=== PATIENT | male | born 1940 | race Caucasian/White ===

== ENCOUNTER 2023-10-21 11:07 | Emergency (ER) | payer MEDICARE, SELFPAY ==
[2023-10-21 11:08] VITALS: BP 176/100; PULSE 80; RESP 18; TEMP 35.7; O2SAT 99; BMI 23.4
[2023-10-21 11:41] LABS: Absolute Lymphocyte Count 0.84 X10^3/uL (0.83-4.51); Absolute Neutrophil Count 7.7 X10^3/uL (2.0-7.7); Basophil# 0.03 X10^3/uL; Basophil% 0.3 % (0-1); Eosinophil# 0.03 X10^3/uL; Eosinophils% 0.3 % (0-5); Hematocrit 39.8 % (40-54); Hemoglobin 13.7 g/dL (13.0-16.5); Lymphocyte # 0.84 X10^3/ul (0.83-4.51); Lymphocyte % 9.2 % (19-41); Mean Corp Hgb Conc 34.4 g/dL (32-36); Mean Corpuscular Hgb 32.9 pg (27.0-32.0); Mean Corpuscular Volume 95.7 fL (80-94); Mean Platelet Vol. 10.2 fl (6.2-12.0); Monocyte# 0.52 X10^3/uL; Monocyte% 5.7 % (0-10); NRBC Flagged by Analyzer 0 % (0-5); Neutrophil # 7.67 X10^3/uL (2.7-7.7); Neutrophil % 83.7 % (47-70); Platelet Count 215 K/mm3 (150-450); RBC Distribution Width CV 12.6 % (11.6-14.6); RBC Distribution Width SD 44.6 fl (35.1-43.9); Red Blood Count 4.16 M/mm3 (4.6-6.2); White Blood Count 9.2 K/mm3 (4.4-11.0)
[2023-10-21 11:57] LABS: Anion Gap 3 (5-15); BUN 24 mg/dL (7-18); BUN/Creat Ratio 24.9 RATIO (10-20); Calcium,Total 9.1 mg/dL (8.5-10.1); Chloride 109 mmol/L (98-107); Creatinine, Serum 0.96 mg/dL (0.70-1.30); EST Glomerular Filtration Rate 79 mL/min (>60); Est Glom Filt Rate - Afr Amer 96 mL/min (>60); Estimated Creatinine Clearance 60.35 ml/min; Glucose 117 mg/dL (74-106); Potassium 3.5 mmol/L (3.5-5.1); Sodium Level 141 mmol/L (136-145)
[2023-10-21 12:08] LABS: Alcohol, Blood (Medical)-Serum < 3.0 mg/dL
--- NOTE | 2023-10-21 12:29 | CT_ITS ---
STUDY: CT BRAIN WITHOUT CONTRAST REASON FOR EXAM: Male, 83 years old. Hallucinations RADIATION DOSAGE (If Supplied By Facility): CTDIvol = ( 44.99 ) mGy, DLP = ( 812.98 ) mGycm TECHNIQUE: Transaxial CT imaging of the brain was performed without administration of intravenous contrast material. Individualized dose optimization techniques were used for this CT. COMPARISON: No relevant priors. FINDINGS: Normal soft tissue structures. Normal calvarium. There is mild cerebral atrophy with widening of the extra-axial spaces and ventricular dilatation. Normal white matter tracts of the cerebral hemispheres. Normal basal ganglia and thalami. Normal brainstem. Normal cerebellum. There is no intracranial hemorrhage. There are no findings of an acute ischemic infarction. Atherosclerotic plaque formation of the cavernous portions of the internal carotid artery bilaterally. Normal visualized paranasal sinuses. CT/Brain/Head without Contrast IMPRESSION: Chronic involutional changes of the brain. Electronically Signed: Victor Hugo Dang MD at 13:19 EST ,
--- NOTE | 2023-10-21 12:30 | EX.ED.VIS.PS ---
HPI HPI - Psych History of Present Illness Chief Complaint: Mental Health Detail of Chief Complaint: Hallucinations Informant: patient Narrative Narrative: Patient presents to the emergency department complaint of hallucinations that has been going on for about a month and a half. Patient was seen twice apparently from what he tells me at [facility] for same. Today he was seeing a psychiatrist for the first time who referred him to the ER for evaluation for possible medical causes. Patient tells me that he sees people that are not really there and maybe once a month. He knows they are not real because they do not talk to him. Patient denies recent illness. Denies headache. Denies falls or head injuries. He denies feeling suicidal or homicidal. [facility] Medical History (Updated 10/21/23 @ 14:[address] Justina Calabrese DO) Altered mental status Cancer Visual hallucinations Home Medications cholecalciferol (vitamin D3) 25 mcg (1,000 unit) capsule 25 mcg PO DAILY 10/21/23 [History Last Taken Unknown] metoprolol tartrate 25 mg tablet mg PO 10/21/23 [History Last Taken Unknown] simvastatin 20 mg tablet mg PO 10/21/23 [History Last Taken Unknown] triamterene 37.5 mg-hydrochlorothiazide 25 mg capsule cap PO 10/21/23 [History Last Taken Unknown] Allergy/AdvReac Type Severity Reaction Status Date / Time No Known Allergies Allergy Verified 10/21/23 09:23 Family History Other Arthritis Cancer Social History (Updated 10/21/23 @ 09:26 by Melissa Liang) Smoking Status: Former smoker alcohol intake: current details: occasional wine substance use type: does not use ROS ROS ED Review of Systems ROS Unobtainable: other Constitutional Constitutional ED: Reports lethargy; Denies chills, fever(s), sweats or weight loss Eyes Eyes: Denies blurry vision, change in vision or diplopia ENT ENT ED: Denies rhinorrhea or sore throat Cardiovascular Cardiovascular: Denies chest pain, orthopnea or racing heartbeat Respiratory/Chest Respiratory/Chest: Denies cough, dyspnea, dyspnea on exertion, orthopnea or sputum Gastrointestinal Gastrointestinal: Denies abdominal pain, diarrhea, nausea or vomiting Genitourinary Genitourinary ED: Denies dysuria, hematuria or urinary frequency Musculoskeletal Musculoskeletal: Denies arthralgias, back pain, myalgias or neck pain Integumentary Denies abscess, Abrasions or rash Neurologic Neurologic: Denies headache(s) or weakness Psychiatric Psychiatric: Reports other Details: Visual hallucinations ; Denies anxiety, depression or suicidal thoughts Endocrine Endocrinology: Denies polydipsia, polyphagia or polyuria Hematologic/Lymphatic Hematologic/Lymphatic: Denies easy bleeding, easy bruising or lymphadenopathy Allergic/Immunologic Allergic/Immunologic ED: Denies mouth swelling, tongue swelling or urticaria EXAM Physical Exam Const Vital Signs: 10/21/23 11:08 Temperature 96.3 F L Temperature Source Temporal Pulse Rate 80 Respiratory Rate 18 Blood Pressure 176/100 H Blood Pressure Mean 125 Pulse Ox 99 Oxygen Delivery Method Room Air Positive well nourished and well developed General Appearance ED: well developed and NAD HEENT Reports TM's clear and moist mucous membranes normocephalic and atraumatic; Negative for trauma or tenderness Tympanic Membrane ED: Yes TM's clear Eyes PERRL and EOMs intact bilaterally General Eye ED: Negative for pale conjunctiva or scleral icterus Neck no lymphadenopathy, supple and no JVD General: Negative for tenderness Chest Wall inspection of chest normal and palpation of chest normal Chest: Negative for tenderness Resp normal respiratory effort and clear to auscultation bilaterally Effort and Inspection: Negative for respiratory distress or pain with movement Auscultation: Negative for rhonchi, wheezes or diminished lung sounds Cardio regular rate, regular rhythm, S1 normal heart sound, S2 normal heart sound and no murmurs Peripheral Pulses: pulses 2+ throughout GI normal to inspection, nondistended, normoactive bowel sounds, soft to palpation, non-tender, non-distended and no masses Back/Spine no CVA tenderness and no thoracic nor lumbar tenderness Extremity normal to inspection General Extremety ED: Negative for edema General Extremity: Negative for edema Neuro oriented x3, CN's II-XII intact bilaterally, no sensory deficits noted and gait normal Sensorium / Orientation: awake, alert, oriented to person, oriented to place and oriented to time Motor Exam: strength 5/5 throughout and strength abnormal Psych mental status grossly normal Skin no rashes or lesions noted and no wounds MDM MDM MDM Narrative Medical decision making narrative: Patient presents with hallucinations for about a month and a half unknown etiology. Seen by his psychiatrist today and referred to the ER to rule out organic causes. Patient had an IV line established. CBC with differential obtained showed a normal white count of 9.2 with hemoglobin 13.7 and platelet count of 215. Chemistries unremarkable. LFTs were normal. Urinalysis was normal. Talk screen negative alcohol negative. CT scan of the brain without contrast was unremarkable. This point etiology of his hallucinations unclear. They are not frequent. Patient states that his psychiatrist may start him on some medication to help treat these hallucinations once his medical workup is completed. At this point clinically he looks well. He has no concern about going home and caring for himself. He will be discharged to home and advised to follow-up with a psychiatrist. Lab Data Attestation: I reviewed the patient's lab results. Labs: Laboratory Results - last 24 hr 10/21/23 10/21/23 11:25 13:20 WBC 9.2 RBC 4.16 L Hgb 13.7 Hct 39.8 L MCV 95.7 H MCH 32.9 H MCHC 34.4 RDW Std Deviation 44.6 H RDW Coeff of Janeth 12.6 Plt Count 215 MPV 10.2 Immature Gran % (Auto) 0.800 Neut % (Auto) 83.7 H Lymph % (Auto) 9.2 L [place] % (Auto) 5.7 Eos % (Auto) 0.3 Baso % (Auto) 0.3 Absolute Neuts (auto) 7.7 Absolute Lymphs (auto) 0.84 Nucleated RBC % 0 Sodium 141 Potassium 3.5 Chloride 109 H Carbon Dioxide 29.0 Anion Gap 3 L BUN 24 H Creatinine 0.96 Estim Creat Clear Calc 60.35 Est GFR (MDRD) Af Amer 96 Est GFR (MDRD) Non-Af 79 BUN/Creatinine Ratio 24.9 H Glucose 117 H Calcium 9.1 Total Bilirubin 1.00 Direct Bilirubin 0.27 AST 28 ALT 30 Alkaline Phosphatase 69 Total Protein 7.1 Albumin 3.8 Globulin 3.3 Urine Color Yellow Urine Clarity Clear Urine pH 7.0 Ur Specific [place] 1.005 Urine Protein Negative Urine Glucose (UA) Normal Urine Ketones Negative Urine Occult Blood 10 H Urine Nitrite Negative Urine Bilirubin Negative Urine Urobilinogen Normal Ur Leukocyte Esterase Negative Urine RBC 0 SEEN Urine WBC 0 SEEN Ur Squamous Epith Cells 0-5 SEEN Urine Bacteria 0 SEEN Urine Mucus 0 SEEN Urine Opiates Screen NEGATIVE Urine Methadone Screen NEGATIVE Ur Barbiturates Screen NEGATIVE Ur Phencyclidine Scrn NEGATIVE Ur Amphetamines Screen NEGATIVE MDMA (Ecstasy) Screen NEGATIVE U Benzodiazepines Scrn NEGATIVE Urine Cocaine Screen NEGATIVE U Cannabinoids Screen NEGATIVE Ur Drug Screen Comment Ethyl Alcohol < 3.0 Radiography Diagnostic Testing: Clinical Impression(s) from Imaging Studies Brain CT 10/21/23 12:29 IMPRESSION: Chronic involutional changes of the brain. Electronically Signed: Victor Hugo Dang MD at 13:19 EST , Discharge Plan Triage Chief Complaint: Mental Health ED Provider: Justina Calabrese Dx/Rx/DC Orders Clinical Impression: Visual hallucinations Instructions: ED Psychosis Prescriptions: No Action triamterene-hydrochlorothiazid 37.5-25 mg capsule PO simvastatin 20 mg tablet PO metoprolol tartrate 25 mg tablet PO cholecalciferol (vitamin D3) 25 mcg (1,000 unit) capsule 25 mcg PO DAILY Primary Care Provider: Kade Villafuerte Referrals: Kade Villafuerte DO [Primary Care Provider] - Activity Restrictions/Additional Instructions: Follow-up with your psychiatrist for possible treatment for your hallucinations. Disposition Disposition: Home, Self Care Discharge Date/Time: 10/21/23 14:58
[2023-10-21 13:09] LABS: AST(SGOT) 28 U/L (15-37); Alanine Aminotransfer ALT/SGPT 30 U/L (16-61); Albumin, Serum 3.8 g/dL (3.2-5.0); Alkaline Phosphatase 69 U/L (45-117); Bilirubin, Direct 0.27 mg/dL (0.00-0.30); Globulin 3.3 g/dL (2.2-4.2); Protein, Total 7.1 g/dL (6.4-8.2)
--- OUTSIDE RECORDS SUMMARY | 2023-10-21 13:31 | XMS RPT_ITS | CCD ---
Author Name Unknown Address [address] [facility] [address] [place] [address] Organization [facility] Care Team Providers Care Power Distribution Engineer Name Role Phone YENI TERRY, DR BAMBI Brooks Primary Care Physician CECI SANTO, DR JENNIFER Saavedra Attending Unavai lable YENI TERRY, DR BAMBI Brooks Primary Care Unavaillong MTZ MD, DANNIELLE Reyes Attending Kia YENI DO, DR BAMBI Brooks Primary Care Unavailabl e YENI , DR BAMBI Brooks Primary Care Unavailabl e YENI , DR BAMBI Brooks Attending Unavailabl e Allergies Allergy Classification Reported Allergen(s) Allergy Type Date of Onset Reaction(s) Facility (6 sources) Vitamin E; Translations: [vitamin E] [facility] Current Medications Medication Drug Class(es) Dates Sig (Normalized) Sig (Original) azithromycin 250 mg oral tablet (1 source) Macrolide Antimicrobial Start: 09-11-2022 End: 09-16-2022 Zithromax Z-Marty 250 mg oral tablet Take two (2) tablets day 1-then one (1) tablet, Oral, Daily, as directed on package labeling, # 6 tab(s), 0 Refill(s), Cough Upper respiratory infection, 70.5 Start Date: 09/11/22 Stop Date: 09/16/22 Status: Ordered benzonatate 100 mg oral capsule (1 source) Non-narcotic Antitussive Start: 09-11-2022 End: 09-18-2022 Tessalon Perles 100 mg oral capsule Dose : 100 mg = 1 cap(s), Oral, TID, PRN as needed for cough, # 21 cap(s), 0 Refill(s), Cough Upper respiratory infection Start Date: 09/11/22 Stop Date: 09/18/22 Status: Ordered famotidine 20 mg oral tablet (2 sources) Histamine-2 Receptor Antagonist Start: 06-01-2019 famotidine 20 mg oral tablet Dose : 20 mg = 1 tab(s), Oral, qDay, # 30 tab(s), 0 Refill(s) Start Date: 06/01/19 Status: Ordered fluorouracil 50 mg/ml topical cream (1 source) Nucleoside Metabolic Inhibitor Start: 11-26-2022 fluorouracil 5% topical cream Apply 1 watson, Topical, BID, treat for 3 weeks then allow to heal. may repeat if needed., # 40 gram(s), 1 Refill(s), Pharmacy: [facility] #[id number], 175, cm, 11/26/22 14:47:00 EST, Height, 72.9 Start Date: 11/26/22 Status: Ordered hydroCHLOROthiazide 25 mg / triamterene 37.5 mg oral capsule (6 sources) Potassium-sparing Diuretic, Thiazide Diuretic Start: 12-29-2022 take 1 capsule by mouth once daily hydrochlorothiaz rafael-triamterene 25 mg-37.5 mg oral capsule See Instructions, TAKE 1 CAPSULE DAILY, # 90 cap(s), 3 Refill(s), Pharmacy: [facility], 175, cm, 11/26/22 14:47:00 EST, Height, kg, 11/26/22 14:47:00 EST, Dosing Weight Start Date: 12/29/22 Status: Ordered Completed/Discontinued Medications Medication Drug Class(es) Dates Sig (Normalized) Sig (Original) albuterol MDI (90 mcg/inh) CFC free inhalation aerosol (1 source) Start: 09-15-2022 End: 10-15-2022 take 2 puff(s) by inhalation every four hours albuterol MDI (90 mcg/inh) CFC free inhalation aerosol 2 puff(s), Inhalation, q4h, ok to fill generic equivalent rescue inhaler, # 1 EA, 0 Refill(s), Pharmacy: [facility] #[id number], 175, cm, 09/15/22 10:19:00 EST, Height Start Date: 09/15/22 Stop Date: 10/15/22 Status: Ordered Problems Problem Classification Problem Date Documented Date Episodic/Chronic Blindness and vision defects (2 sources) Visual hallucinations; Translations: [Visual hallucinations] Onset: 06-29-2023 Episodic Cancer of prostate (6 sources) History of malignant neoplasm of prostate 12-21-2019 Episodic Disorders of lipid metabolism (6 sources) Mixed hyperlipidemia 12-21-2019 Chronic Esophageal disorders (6 sources) Gastroesophageal reflux disease without esophagitis 12-21-2019 Chronic Essential hypertension (6 sources) Benign hypertension 08-29-2020 Chronic Influenza (3 sources) Influenza due to Influenza A virus 09-15-2022 Episodic Other lower respiratory disease (5 sources) Cough; Translations: [Cough, unspecified] Onset: 09-11-2022 Episodic Other upper respiratory infections (5 sources) Acute upper respiratory infection; Translations: [Acute upper respiratory infection, unspecified] Onset: 09-11-2022 Episodic Results Test Name Value Interpretation Reference Range Facil ity Vital Signs Date Time Vital Sign Value Performing Clinician Faci lity 09-22-2023 22:03-0500 Diastolic Blood Pressure Non-Invasive 73 mm[Hg] DANNIELLE MTZ MD [facility] 09-22-2023 22:03-0500 Heart rate 81 /min DANNIELLE MTZ MD [facility] 09-22-2023 22:03-0500 Reason For Taking VItal Signs DANNIELLE MTZ MD [facility] 09-22-2023 22:03-0500 Respiratory rate 18 /min DANNIELLE MTZ MD [facility] 09-22-2023 22:03-0500 Systolic Blood Pressure Non-Invasive 168 mm[Hg] DANNIELLE MTZ MD [facility] 09-22-2023 18:15-0500 Diastolic Blood Pressure Non-Invasive 88 mm[Hg] DANNIELLE MTZ MD [facility] 09-22-2023 18:15-0500 Heart rate 84 /min DANNIELLE MTZ MD [facility] 09-22-2023 18:15-0500 Respiratory rate 18 /min DANNIELLE MTZ MD [facility] 09-22-2023 18:15-0500 Systolic Blood Pressure Non-Invasive 168 mm[Hg] DANNIELLE MTZ MD [facility] 09-22-2023 16:22-0500 Body temperature 97.52 [degF] DANNIELLE MTZ MD [facility] 09-22-2023 16:22-0500 Diastolic Blood Pressure Non-Invasive 90 mm[Hg] DANNIELLE MTZ MD [facility] 09-22-2023 16:22-0500 Heart rate 87 /min DANNIELLE MTZ MD [facility] 09-22-2023 16:22-0500 Respiratory rate 18 /min DANNIELLE MTZ MD [facility] 09-22-2023 16:22-0500 Systolic Blood Pressure Non-Invasive 172 mm[Hg] DANNIELLE MTZ MD [facility] 06-29-2023 14:15-0400 Diastolic Blood Pressure Non-Invasive 68 1 DANNIELLE MTZ MD [facility] 06-29-2023 14:15-0400 Heart rate 72 /min DANNIELLE MTZ MD [facility] 06-29-2023 14:15-0400 Respiratory rate 16 /min DANNIELLE MTZ MD [facility] 06-29-2023 14:15-0400 Systolic Blood Pressure Non-Invasive 138 1 DANNIELLE MTZ MD [facility] 06-29-2023 11:39-0400 Blood Pressure Location DANNIELLE MTZ MD [facility] 06-29-2023 11:39-0400 Blood Pressure Method DANNIELLE MTZ MD [facility] 06-29-2023 11:39-0400 Body temperature 97.7 [degF] DANNIELLE MTZ MD [facility] 06-29-2023 11:39-0400 Body weight 68.2 kg DANNIELLE MTZ MD [facility] 06-29-2023 11:39-0400 Diastolic Blood Pressure Non-Invasive 65 1 DANNIELLE MTZ MD [facility] 06-29-2023 11:39-0400 Heart rate 75 /min DANNIELLE MTZ MD [facility] 06-29-2023 11:39-0400 Respiratory rate 16 /min DANNIELLE MTZ MD [facility] 06-29-2023 11:39-0400 Systolic Blood Pressure Non-Invasive 138 1 DANNIELLE MTZ MD [facility] 09-11-2022 09:48-0500 Diastolic Blood Pressure Non-Invasive [address] SURJIT GIBBS MD [facility] 09-11-2022 09:48-0500 Heart rate 80 /min DR SURJIT GIBBS MD [facility] 09-11-2022 09:48-0500 Respiratory rate 20 /min DR SURJIT GIBBS MD [facility] 09-11-2022 09:48-0500 Systolic Blood Pressure Non-Invasive [address] SURJIT GIBBS MD [facility] 09-11-2022 07:53-0500 Heart rate 88 /min DR SURJIT GIBBS MD [facility] 09-11-2022 07:53-0500 Respiratory rate 16 /min DR SURJIT GIBBS MD [facility] 09-11-2022 07:40-0500 Body height 177.[address] SURJIT GIBBS MD [facility] 09-11-2022 07:40-0500 Body temperature 98.42 [degF] DR SURJIT GIBBS MD [facility] 09-11-2022 07:40-0500 Body weight 70.[address] SURJIT GIBBS MD [facility] 09-11-2022 07:40-0500 Diastolic Blood Pressure Non-Invasive [address] SURJIT GIBBS MD [facility] 09-11-2022 07:40-0500 Heart rate 102 /min DR SURJIT GIBBS MD [facility] 09-11-2022 07:40-0500 Respiratory rate 20 /min DR SURJIT GIBBS MD [facility] 09-11-2022 07:40-0500 Systolic Blood Pressure Non-Invasive [address] SURJIT GIBBS MD [facility] Encounters Encounter Date Encounter Type Care Provider Facility Start: 09-22-2023 End: 09-23-2023 Emergency department patient visit DR JENNIFER ORNELAS MD Facility:[facility] Start: 09-22-2023 End: 09-22-2023 Emergency department patient visit DANNIELLE MTZ MD [facility] Start: 07-03-2023 End: 07-04-[address] BAMBI JAIME DO Facility:[facility] Start: 07-03-2023 End: 07-03-[address] BAMBI JAIME DO [facility] Start: 06-29-2023 End: 06-29-2023 Emergency department patient visit DANNIELLE MTZ MD Facility:[facility] Start: 06-29-2023 End: 06-29-2023 Emergency department patient visit DANNIELLE MTZ MD [facility] Start: 09-11-2022 End: 09-11-2022 Emergency department patient visit DR SURJIT GIBBS MD [facility] Start: 11-12-2021 End: 11-16-2021 Outreach Lab MARIA ELENA SHAY RECREATION COORDINATOR-BODY WORK AUTO TRIMMER [facility] Start: 08-22-2021 End: 08-26-[address] BAMBI JAIME DO [facility] Procedures Date Procedure Procedure Detail Performing Clinician Start: 07-30-1993 Procedure on prostate D Chad JAIME DO Immunizations Immunization Date Immunization Notes Care Provider Fa cili 08-11-2022 SARS-CoV-2 (CV19)mRNA-1273 bivalent vac DANNIELLE MTZ MD [facility] 08-11-2022 SARS-CoV-2 CV19 mRNA-[address] SURJIT GIBBS MD [facility] 06-05-2022 influenza virus vacc ine, unspecified formulation DR SURJIT GIBBS MD [facility] 02-17-2022 SARS-CoV-2 (COVID-19 ) mRNA-[address] SURJIT GIBBS MD [facility] 08-12-2021 SARS-CoV-2 (COVID-19 ) mRNA-[address] BAMBI JAIME DO [facility] 07-10-2021 influenza virus vacc ine, unspecified formulation DR SURJIT GIBBS MD [facility] 12-05-2020 COVID-19, mRNA, LNP- S, PF, 100 mcg/ 0.5 mL dose; Translations: [Moderna COVID-19 Vaccine] DR BABMI JAIME DO [facility] 11-07-2020 SARS-CoV-2 (COVID-19 ) mRNA-[address] BAMBI JAIME DO [facility] 06-02-2020 influenza virus vacc ine, unspecified formulation DR BAMBI JAIME DO [facility] 07-08-2019 influenza virus vacc ine, unspecified formulation DR BAMBI JAIME DO [facility] 06-01-2019 pneumococcal polysaccharide vaccine, 23 valent; Translations: [Pneumovax 23] DR BAMBI JAIME DO [facility] 07-01-2018 influenza virus vacc ine, unspecified formulation DR BAMBI JAIME DO [facility] 06-12-2018 influenza virus vacc ine, unspecified formulation DR BAMBI JAIME DO [facility] 06-02-2018 pneumococcal conjuga te vaccine, [address] BAMBI JAIME DO [facility] 06-02-2018 tetanus toxoid, redu zafar diphtheria toxoid, and acellular pertussis vaccine, adsorbed DR BAMBI JAIME DO [facility] 06-25-2017 influenza virus vacc ine, unspecified formulation DR BAMBI JAIME DO [facility] 06-13-2016 influenza virus vacc ine, unspecified formulation DR BAMBI JAIME DO [facility] 08-02-2015 influenza virus vacc ine, unspecified formulation DR BAMBI JAIME DO [facility] 12-29-2014 pneumococcal conjuga te vaccine, [address] BAMBI JAIME DO [facility] Payers Date Payer Category Payer Unknown [id number] 1940 Unknown [id number] 1940 Unknown [id number] 1940 Unknown [id number] Social History Date Type Detail Facility Start: 05-30-2019 End: 09-22-2023 Ex-smoker (finding) [facility] Sex Assigned At [facility] Functional Status Date Assessment Result Facility 09-22-2023 Functional Status Standard Safet y ID band on, Call device within reach, Bed in low position, Wheels locked, Bedside Cart Locked, Safety level maintained [facility] 09-22-2023 Functional Status [facility] 06-29-2023 Functional Status Minimum assistance [facility] 06-29-2023 Functional Status ID band on, Call device within reach, Bed in low position, Wheels locked, Upper/Half-Length side-rails up, Visitor at bedside [facility] 09-11-2022 Functional Status Independent [facility] 09-11-2022 Functional Status Resting [facility] Mental Status Date Assessment Result Facility 09-22-2023 Mental Status Orientation Not oriented to time, Forgetful, Follows simple commands [facility] 09-22-2023 Mental Status [facility] 09-22-2023 Mental Status [facility] 06-29-2023 Mental Status Orientation Oriented x 4 [facility] 06-29-2023 Mental Status [facility] 09-11-2022 Mental Status Orientation Oriented x 4 [facility] 09-11-2022 Mental Status [facility] Clinical Notes 11-12-2021 to 09-23-2023 LaboratoryLaboratoryLaboratoryLaboratoryLaboratory Note Date & Type Note Facility 09-23-2023 Hospital Discharge instructions Patient Education 09/22/2023 22:53:30 For Caregivers: Safety Tips for Dementia Patients For Caregivers: Safety Tips for People With Dementia Prevent driving by keeping your loved one s car keys in a secure place. The symptoms of dementia can sometimes lead to unsafe situations. Areas of special concern include driving and wandering away from home. You may also need to make changes in your loved one s living space. These can help protect your loved one even when you aren t around. Discourage driving Driving is often not safe for a person with dementia. It may even be illegal. Ask the healthcare provider if it s safe for your loved one to drive. If safety is in question, use these tips to prevent him or her from getting behind the wheel: Limit access to the car. Keep the keys with you or lock them away. Ask an authority figure, such as a healthcare provider or disability insurance claim examiner, to tell your loved one not to drive. Ask your healthcare provider about contacting the Department of Motor Vehicles. Watch for wandering People with dementia may wander away from the house and get lost. To keep your loved one safer, try these tips: Have your loved one wear an ID bracelet at all times. You can also enroll your loved one in the Alzheimer s Association s Safe Return program. Install door chimes so you know when outside doors are being opened. Ask neighbors to call you if they see your loved one out alone. Go with your loved one if he or she insists on leaving the house. Don t argue or yell. Instead, use distraction or gentle hints to get him or her to return home. People with dementia often have a reversed sleep-wake cycle, meaning that they can be up all night and wander away when you least expect it. Make living spaces safe Keep your loved one safe by simplifying his or her living space. This means reducing clutter and removing hazards. You may also want to get advice from an occupational therapist (home safety expert). Keep in mind that some changes may not be needed right away. Focus on major safety concerns first. In living spaces Suggested safety steps include: Install smoke alarms and nightlights. Display emergency numbers and the home address near all phones. Install an answering machine so important messages aren t missed. Reduce tripping hazards. Move electrical and phone cords out of the way. Place colored tape on the edges of steps. In the bathroom Suggested safety steps include: Store hair dryers, razors, and curling irons in a secure area. Remove poisons, such as spool cleaner hand and nail croatian remover. Keep medicines in a secure area, not in the medicine cabinet. Remove inside door locks so your loved one doesn t get locked inside. In the kitchen Suggested safety steps include: Unplug toasters and other appliances when not in use. Limit access to alcohol. It can make symptoms much worse. Remove or cover knobs on stoves and other appliances. Check food for spoilage. Your loved one may not know when food has gone bad. Other areas of the home Suggested safety steps include: Lock up hazardous substances, such as bleach, pesticides, and paint thinners. Keep pool or hot tub areas closed off. Set the hot water heater below 120 F (48.8 C). Keep a spare saldana outside the house in case your loved one locks you out. Prevent fraud People with dementia may be easy victims for dishonest salespeople or money scams. Try placing a No Solicitations sign on your loved one s front door. Add his or her phone number to the [employer] s Do Not Call list ([phone]). You should also limit access to credit cards and boone. Can my loved one live alone? Early on, people with dementia can often handle daily tasks with little or no help. But at some point it won't be safe for them to be on their own. The timing for this is different for each person. But problems such as forgetting to eat, bathe, or take medicines can all be signs that more supervision is needed. If you have concerns, talk with your loved one s healthcare provider. [id number] [employer] [address] [place] [address]. All rights reserved. This information is not intended as a substitute for professional medical care. Always follow your healthcare professional's instructions. 09/22/2023 22:53:27 Dementia, Any Type, Caregiver Support Dementia and Caregiver Support Dementia is a chronic condition that affects the brain. It causes a gradual loss of memory and higher intellectual functions. A person with dementia may have trouble recognizing familiar people and places, or knowing what day it is. The person s memory, judgment, and decision-making may also be affected. In severe cases, the person may not respond when someone talks to him or her. The most common form of dementia is Alzheimer s disease. Doctors don t fully understand what causes AD. It has no cure. But medicines can treat some of the symptoms. Some of the less common causes for dementia are curable. So it s important to have a complete medical evaluation to look for conditions that can be treated. Home care These tips can help you care for a person with AD at home: A responsible person must be with the person who has advanced AD at all times. He or she should not be left alone or unsupervised. In the case of advanced AD, keep all medicines in a secure place. They should be under the caregiver s control. A person with advanced AD should not be allowed to take his or her own medicines. This needs to be supervised by the caregiver. Here are ways to help a person with dementia: Activities Keep to a daily routine. Changes in routine can cause stress for someone with dementia. Make a schedule for common daily tasks. These include bathing, dressing, taking medicines, eating meals, going for walks, and going to bed. Communication When talking to a person with dementia, talk slowly and clearly. Use a gentle tone of voice. Choose short, simple words and sentences. Ask one question at a time. Don t interrupt, criticize, or argue. Be calm and supportive. Use friendly facial expressions. Use pointing and touching to help communicate. If the person has a loss of long-term memory, don t ask questions about past events. Instead, talk about what is happening now. Behavioral tips Use lists, signs, family photos, clocks, and calendars as memory aids. Label cabinets and drawers. Try to distract, not confront, the person. When he or she becomes frustrated or upset, direct the person s attention to eating or some other interesting activity. Medical-legal tips Talk with your doctor or waterworks operator about getting a power of health care attorney for healthcare and for financial decisions. It is best to do this while the person can still sign legal documents and make his or her own legal decisions. Otherwise, you'll need a court order. Support for the caregiver As the caregiver, you will need a lot of support for yourself. Caring for a person with dementia is a full-time job. It can drain your emotions and lead to frustration and anger toward the one you love. It is common to have feelings of grief over losing the relationship that you once had. As a caregiver to someone with dementia, you are at higher risk for depression, anxiety and stress. Here are some tips to help you cope with being a caregiver: Learn about dementia and Alzheimer s disease so you know what to expect. Find out about the resources in your community, including adult day-care programs. Ask your healthcare provider for a referral to a hospice social worker, if needed. Take care of yourself with a healthy diet, exercise, and plenty of rest. Ask for help. Share some of the caretaking duties with family and friends. Make personal time for yourself. This is essential! Consider hiring an in-home sitter or home health aide. Seek counseling or join a caregiver s support group. Don't isolate yourself or try to cope with this alone. In a support group, you can learn from others in a similar situation. Visit the Alzheimer s Association website (www.alz.org) for more information. Follow-up care Follow up with the person s healthcare provider, or as advised. When to seek medical advice Call your healthcare provider right away if any of these occur: Frequent falls The person refuses to eat or drink Violent behavior or behavior becomes too difficult to manage at home Increased drowsiness, or failure to respond normally Headache or nausea that gets worse, or repeated vomiting Numbness or weakness of the face, an arm, or a leg Slurred speech, trouble speaking, walking, or seeing Fainting spell, dizziness, or seizure (staring spells, lip-smacking, twitching, sudden changes in mental status) Unexplained fever of 100.4 F (38.0 C) or higher [id number] [employer] [address] [place] [address]. All rights reserved. This information is not intended as a substitute for professional medical care. Always follow your healthcare professional's instructions. 09/22/2023 22:53:23 Confusion Confusion Confusion or delirium is a change in a person s ability to think clearly. There may be trouble recognizing familiar people and places or knowing what day it is. Memory, judgment, and decision-making may also be affected. In severe cases, the person may have limited or no response to being spoken to. Confusion usually appears over a few days and can vary throughout the day. It can last weeks to months. Confusion is usually a sign of an underlying problem. It may occur suddenly. Or it may develop gradually over time. Causes of confusion include brain injury, medicines, alcohol, withdrawal from certain medicines or illegal drugs, and infection. Heart attack and stroke may cause it. Confusion can also be a sign of dementia or a mental illness. Treatment will depend on the cause of the problem. If the issue is a medicine, stopping the medicine may help. Thiamine supplement may help with very little risk of side effects. Haloperidol is useful but people with Parkinson disease should not use it. Benzodiazepines are only used in people undergoing alcohol withdrawal. Home care Be sure someone is with the confused person at all times. He or she should not be left alone or unsupervised. Tell the healthcare provider about all medicines that the person takes. These include prescription, [id number], herbs, and supplements. Dehydration can increase confusion. Ask the healthcare provider how much fluid the person should be drinking. Offer liquids and ensure that they are taken. Keep all medicines in a secure place under the caregiver s control. To prevent overdose, a confused person should take medicines only under the supervision of a caregiver. To help a person with confusion: oEstablish a daily routine. Change can be a source of stress for someone with confusion. Make and keep a time schedule for common tasks such as bathing, dressing, taking medicines, meals, going for walks, shopping, naps and bed time. Make sure that the person has glasses and hearing aids if needed. oDon't use physical restraints. oSpeak slowly and clearly with a gentle tone of voice. Use short simple words and sentences. Ask one question at a time. Don'tt interrupt, criticize or argue. Be calm and supportive. Use friendly facial expressions. Use pointing and touching to help communicate. If there has been loss of long-term memory, don't ask questions about past events. This would only cause frustration for the person. oUse lists, signs, family photos, clocks and calendars as memory aids. Label cabinets and drawers. Try to distract, not confront, the person. When he or she becomes frustrated or upset, redirect attention to eating or some other activity of interest. oIf this proves to be due to a permanent condition, talk to the healthcare provider or a waterworks operator about getting a Power of Anode Crew Supervisor for healthcare and for financial decisions. It is best to do this while the person can still sign legal documents and make his or her own decisions. Otherwise, a court order will be required. Follow-up care Follow up with the person's healthcare provider or as advised for further testing or changes in medical care. When to seek medical advice Call the healthcare provider for any of the following: Frequent falling Refusal to eat or drink Increased drowsiness Nausea or vomiting Unexplained fever over 100.4 F (38.0 C) or as directed by the healthcare provider Call 911 Call 911 or emergency services right away if any of the following occur: Violent behavior or behavior too hard to manage at home New hallucinations or delusions complains of severe headache or numbness or weakness of the face, arm, or leg Slurred speech or trouble speaking, walking, or seeing Fainting spell, dizziness, or seizure [id number] [employer] [place] [address]. All rights reserved. This information is not intended as a substitute for professional medical care. Always follow your healthcare professional's instructions. Follow Up Care 09/22/2023 16:18:36 With:[facility] Address: [address] [place] [phone] Business (1) When:2-4 days Comments:Can see patients in [place] With:Dr Mushtaq Vick - psychiatry in [phone] [facility], [address] [place] [address], [address] [place] [address] Address:Unknown When:2-4 days With:BAMBI JAIME Address: [address] [place] [phone] Business (1) When:2-4 days [facility] 09-22-2023 Emergency department Discharge summary Discharge Instructions Thank you for allowing [facility] to assist you with your healthcare needs. The following is important discharge information regarding your hospital visit. Diagnosis from Today's Visit Hallucinations/visional Visual hallucinations What to Do Next Instructions from Your Care Team No qualifying data available. Post Acute Orders No qualifying data available. You Need to Schedule the Following Appointments Follow Up with [facility] When Within 2-4 days Why: Can see patients in [place] Where: [address] [place] [phone] Business (1) Follow Up with Dr Mushtaq Vick - psychiatry in [facility] [phone] [facility], [address] [facility], [address] [place] [address] When Within 2-4 days Follow Up with BAMBI JAIME When Within 2-4 days Where: [address] [facility] [place] [phone] Business (1) Allergies vitamin E (Itching, Hives) Medications Please ask your primary doctor or pharmacist before taking any other medication not listed, including over the counter drugs, herbal medications, vitamins and or supplements as they may interact with your home medications. What How Much When Why Instructions Last Dose Unchanged cholecalciferol (Vitamin D3) 400 unit(s) by mouth Every day Unchanged herbal/ nutritional product (turmeric 500 mg oral capsule) Unchanged hydrochlorothiazide-triamterene (hydrochlorothiazide-triamterene 25 mg-37.5 mg oral capsule) See instructions TAKE 1 CAPSULE DAILY Unchanged metoprolol (Lopressor 25mg--USE metoprolol tartrate 25 mg oral tablet) 1 tab(s) by mouth Two (2) times a day Unchanged simvastatin (simvastatin 20 mg oral tablet) 1 tab(s) by mouth Daily at bedtime Hyperlipidemia, mixed Duration: 14 Days Unchanged simvastatin (simvastatin 20 mg oral tablet) 1 tab(s) by mouth Daily at bedtime Hyperlipidemia, mixed Please take this list to your next doctor s visit. Bring all medications you take, including over the counter medications, herbals and other supplements with you to your doctor s visit. Patients and families are reminded to discard old lists and to update any records with all medication providers or retail pharmacies. Education Materials For Caregivers: Safety Tips for People With Dementia Prevent driving by keeping your loved one s car keys in a secure place. The symptoms of dementia can sometimes lead to unsafe situations. Areas of special concern include driving and wandering away from home. You may also need to make changes in your loved one s living space. These can help protect your loved one even when you aren t around. Discourage driving Driving is often not safe for a person with dementia. It may even be illegal. Ask the healthcare provider if it s safe for your loved one to drive. If safety is in question, use these tips to prevent him or her from getting behind the wheel: Limit access to the car. Keep the keys with you or lock them away. Ask an authority figure, such as a healthcare provider or disability insurance claim examiner, to tell your loved one not to drive. Ask your healthcare provider about contacting the Department of Motor Vehicles. Watch for wandering People with dementia may wander away from the house and get lost. To keep your loved one safer, try these tips: Have your loved one wear an ID bracelet at all times. You can also enroll your loved one in the Alzheimer s Association s Safe Return program. Install door chimes so you know when outside doors are being opened. Ask neighbors to call you if they see your loved one out alone. Go with your loved one if he or she insists on leaving the house. Don t argue or yell. Instead, use distraction or gentle hints to get him or her to return home. People with dementia often have a reversed sleep-wake cycle, meaning that they can be up all night and wander away when you least expect it. Make living spaces safe Keep your loved one safe by simplifying his or her living space. This means reducing clutter and removing hazards. You may also want to get advice from an occupational therapist (home safety expert). Keep in mind that some changes may not be needed right away. Focus on major safety concerns first. In living spaces Suggested safety steps include: Install smoke alarms and nightlights. Display emergency numbers and the home address near all phones. Install an answering machine so important messages aren t missed. Reduce tripping hazards. Move electrical and phone cords out of the way. Place colored tape on the edges of steps. In the bathroom Suggested safety steps include: Store hair dryers, razors, and curling irons in a secure area. Remove poisons, such as spool cleaner hand and nail croatian remover. Keep medicines in a secure area, not in the medicine cabinet. Remove inside door locks so your loved one doesn t get locked inside. In the kitchen Suggested safety steps include: Unplug toasters and other appliances when not in use. Limit access to alcohol. It can make symptoms much worse. Remove or cover knobs on stoves and other appliances. Check food for spoilage. Your loved one may not know when food has gone bad. Other areas of the home Suggested safety steps include: Lock up hazardous substances, such as bleach, pesticides, and paint thinners. Keep pool or hot tub areas closed off. Set the hot water heater below 120 F (48.8 C). Keep a spare saldana outside the house in case your loved one locks you out. Prevent fraud People with dementia may be easy victims for dishonest salespeople or money scams. Try placing a No Solicitations sign on your loved one s front door. Add his or her phone number to the [employer] s Do Not Call list ([phone]). You should also limit access to credit cards and boone. Can my loved one live alone? Early on, people with dementia can often handle daily tasks with little or no help. But at some point it won't be safe for them to be on their own. The timing for this is different for each person. But problems such as forgetting to eat, bathe, or take medicines can all be signs that more supervision is needed. If you have concerns, talk with your loved one s healthcare provider. [phone] [employer] [address] [place] [address]. All rights reserved. This information is not intended as a substitute for professional medical care. Always follow your healthcare professional's instructions. Dementia and Caregiver Support Dementia is a chronic condition that affects the brain. It causes a gradual loss of memory and higher intellectual functions. A person with dementia may have trouble recognizing familiar people and places, or knowing what day it is. The person s memory, judgment, and decision-making may also be affected. In severe cases, the person may not respond when someone talks to him or her. The most common form of dementia is Alzheimer s disease. Doctors don t fully understand what causes AD. It has no cure. But medicines can treat some of the symptoms. Some of the less common causes for dementia are curable. So it s important to have a complete medical evaluation to look for conditions that can be treated. Home care These tips can help you care for a person with AD at home: A responsible person must be with the person who has advanced AD at all times. He or she should not be left alone or unsupervised. In the case of advanced AD, keep all medicines in a secure place. They should be under the caregiver s control. A person with advanced AD should not be allowed to take his or her own medicines. This needs to be supervised by the caregiver. Here are ways to help a person with dementia: Activities Keep to a daily routine. Changes in routine can cause stress for someone with dementia. Make a schedule for common daily tasks. These include bathing, dressing, taking medicines, eating meals, going for walks, and going to bed. Communication When talking to a person with dementia, talk slowly and clearly. Use a gentle tone of voice. Choose short, simple words and sentences. Ask one question at a time. Don t interrupt, criticize, or argue. Be calm and supportive. Use friendly facial expressions. Use pointing and touching to help communicate. If the person has a loss of long-term memory, don t ask questions about past events. Instead, talk about what is happening now. Behavioral tips Use lists, signs, family photos, clocks, and calendars as memory aids. Label cabinets and drawers. Try to distract, not confront, the person. When he or she becomes frustrated or upset, direct the person s attention to eating or some other interesting activity. Medical-legal tips Talk with your doctor or waterworks operator about getting a power of health care attorney for healthcare and for financial decisions. It is best to do this while the person can still sign legal documents and make his or her own legal decisions. Otherwise, you'll need a court order. Support for the caregiver As the caregiver, you will need a lot of support for yourself. Caring for a person with dementia is a full-time job. It can drain your emotions and lead to frustration and anger toward the one you love. It is common to have feelings of grief over losing the relationship that you once had. As a caregiver to someone with dementia, you are at higher risk for depression, anxiety and stress. Here are some tips to help you cope with being a caregiver: Learn about dementia and Alzheimer s disease so you know what to expect. Find out about the resources in your community, including adult day-care programs. Ask your healthcare provider for a referral to a hospice social worker, if needed. Take care of yourself with a healthy diet, exercise, and plenty of rest. Ask for help. Share some of the caretaking duties with family and friends. Make personal time for yourself. This is essential! Consider hiring an in-home sitter or home health aide. Seek counseling or join a caregiver s support group. Don't isolate yourself or try to cope with this alone. In a support group, you can learn from others in a similar situation. Visit the Alzheimer s Association website (www.alz.org) for more information. Follow-up care Follow up with the person s healthcare provider, or as advised. When to seek medical advice Call your healthcare provider right away if any of these occur: Frequent falls The person refuses to eat or drink Violent behavior or behavior becomes too difficult to manage at home Increased drowsiness, or failure to respond normally Headache or nausea that gets worse, or repeated vomiting Numbness or weakness of the face, an arm, or a leg Slurred speech, trouble speaking, walking, or seeing Fainting spell, dizziness, or seizure (staring spells, lip-smacking, twitching, sudden changes in mental status) Unexplained fever of 100.4 F (38.0 C) or higher [id number] [employer] [address] [place] [address]. All rights reserved. This information is not intended as a substitute for professional medical care. Always follow your healthcare professional's instructions. Confusion Confusion or delirium is a change in a person s ability to think clearly. There may be trouble recognizing familiar people and places or knowing what day it is. Memory, judgment, and decision-making may also be affected. In severe cases, the person may have limited or no response to being spoken to. Confusion usually appears over a few days and can vary throughout the day. It can last weeks to months. Confusion is usually a sign of an underlying problem. It may occur suddenly. Or it may develop gradually over time. Causes of confusion include brain injury, medicines, alcohol, withdrawal from certain medicines or illegal drugs, and infection. Heart attack and stroke may cause it. Confusion can also be a sign of dementia or a mental illness. Treatment will depend on the cause of the problem. If the issue is a medicine, stopping the medicine may help. Thiamine supplement may help with very little risk of side effects. Haloperidol is useful but people with Parkinson disease should not use it. Benzodiazepines are only used in people undergoing alcohol withdrawal. Home care Be sure someone is with the confused person at all times. He or she should not be left alone or unsupervised. Tell the healthcare provider about all medicines that the person takes. These include prescription, ibej-xrb-rurbaox, herbs, and supplements. Dehydration can increase confusion. Ask the healthcare provider how much fluid the person should be drinking. Offer liquids and ensure that they are taken. Keep all medicines in a secure place under the caregiver s control. To prevent overdose, a confused person should take medicines only under the supervision of a caregiver. To help a person with confusion: oEstablish a daily routine. Change can be a source of stress for someone with confusion. Make and keep a time schedule for common tasks such as bathing, dressing, taking medicines, meals, going for walks, shopping, naps and bed time. Make sure that the person has glasses and hearing aids if needed. oDon't use physical restraints. oSpeak slowly and clearly with a gentle tone of voice. Use short simple words and sentences. Ask one question at a time. Don'tt interrupt, criticize or argue. Be calm and supportive. Use friendly facial expressions. Use pointing and touching to help communicate. If there has been loss of long-term memory, don't ask questions about past events. This would only cause frustration for the person. oUse lists, signs, family photos, clocks and calendars as memory aids. Label cabinets and drawers. Try to distract, not confront, the person. When he or she becomes frustrated or upset, redirect attention to eating or some other activity of interest. oIf this proves to be due to a permanent condition, talk to the healthcare provider or a waterworks operator about getting a Power of Anode Crew Supervisor for healthcare and for financial decisions. It is best to do this while the person can still sign legal documents and make his or her own decisions. Otherwise, a court order will be required. Follow-up care Follow up with the person's healthcare provider or as advised for further testing or changes in medical care. When to seek medical advice Call the healthcare provider for any of the following: Frequent falling Refusal to eat or drink Increased drowsiness Nausea or vomiting Unexplained fever over 100.4 F (38.0 C) or as directed by the healthcare provider Call 911 Call 911 or emergency services right away if any of the following occur: Violent behavior or behavior too hard to manage at home New hallucinations or delusions complains of severe headache or numbness or weakness of the face, arm, or leg Slurred speech or trouble speaking, walking, or seeing Fainting spell, dizziness, or seizure [id number] [employer] [address] [place] [address]. All rights reserved. This information is not intended as a substitute for professional medical care. Always follow your healthcare professional's instructions. Additional Information VACCINATE! IT SAVES LIVES! Members of the community who have not yet received the COVID-19 vaccine and would like to receive it can visit one of [facility] vaccine clinics. There are many vaccine clinic locations within the [facility]. For locations and available times, please visit www.gettheshot.coronavirus.[place].g [email or web address] It is important to note that some COVID mobile vaccine clinics are held outdoors and may be canceled in rainy or stormy conditions. To learn more about pediatric vaccinations (ages 5-11), we invite you to visit the [facility] webpage. https://www.Clctins.org/pa [email or web address]-Vcdhd-Jhhidlmwqjz-Freque llku-Mtizm-Hhyztsnxw.html To learn more about the COVID-19 vaccine, we invite you to visit the CDC website for a list of frequently asked questions. https://www.cdc.gov/coronavirus/2 019-ncov/vaccines/faq.html [facility] Patient Portal Access Instructions: Stay connected with your healthcare team and access your personal medical information anytime with the [facility] Patient Portal. If you would like a full copy of your medical records please contact the [facility] Medical Records Department Thursday through Thursday between 8a.m. and 4:30p.m. Please follow the directions below to access the portal: 1.Access the email account you provided upon registration to the [facility].2.Look for an invitation email from [facility].3.Open the email and access the invitation link: Accept Invitation to [facility].Fill in the required bravo to create your account. Sign into www.[employer] with your username and password that you created in the above steps to stay up to date. You can then view a summary of results, a summary of your visits, and the ability to download your summaries to your computer or send the information securely to a physician. Remember that your healthcare information is confidential, so carefully consider who you will allow to register on the [facility] Patient Portal for access to your information. You can also access the [facility] Patient Portal on the [employer] [facility]son. Simply click on Health Records under Health Data and then click on the [employer] logo. HOW TO SAFELY DISPOSE OF PRESCRIPTION MEDICATIONS Please use one of the following methods to safely dispose of your unused medications. 1.Use a drug disposal kit: the drug disposal pouch allows you to safely discard your old and unused drugs. Ask your nurse to give you one when you are discharged.2.Visit a local take-back location: Many local pharmacies and police departments have programs that collect old and unwanted prescription drugs. Call your local pharmacy or go to http://Pandabus.[employer]/7G2Oj1m to find one close to you.3.Make use of household items: Use cat litter or old coffee grounds to dispose medications if other options are not available. Mix your drugs with these household products, seal them in an airtight container and throw it into the garbage. Call [facility]: [phone] to be sure your drugs can be disposed of in this way. Some medicines may require a different approach.4.Never flush your medications down the toilet. IF YOU HAVE BEEN PRESCRIBED AN OPIOIDS FOR PAIN If you have been prescribed an opioid (such as hydrocodone, oxycodone or morphine), it is critical to understand the possible side effects and risks of opioid pain medications. Even when taken as directed, opioids can have several side effects including: Tolerance, meaning you might need to take more of a medication for the same pain relief. Nausea, vomiting and/or constipation. Sleepiness, dizziness, dry mouth, confusion, depression or itching. Physical dependence, meaning you have withdrawal symptoms when a medication is stopped ? this can develop within a few days. KNOW YOUR RESPONSIBILITIES It is important to know exactly how much and how often to take the opioid pain medications you are prescribed. Never take opioids in higher amounts or more often than prescribed. Do not combine opioids with alcohol or other drugs that cause drowsiness, such as benzodiazepines, also known as benzos, including diazepam and alprazolam, muscle relaxants or sleep aids. Never sell or share prescription opioids. This is illegal. Store opioids in a secure place and out of reach of others (including children, family, friends and visitors). The last page(s) of this document has been signed and retained as a CHART COPY Signatures Patient Education Materials For Caregivers: Safety Tips for Dementia Patients Dementia, Any Type, Caregiver Support Confusion Medication Leaflets My discharge plan and instructions have been reviewed and explained to me and I,DERRICK DONNELLY understand my current condition and have read and understand these discharge instructions. I have received a written copy of the plan/instructions. If I have questions, I am aware that I should contact my doctor. 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 The aorta is atherosclerotic. There is no focal consolidation, pleural effusion, vascular congestion, or pneumothorax. Degenerative changes are visible in the osseous structures. IMPRESSION: No acute radiographic cardiopulmonary findings. Interpreted by: Yessenia You MD Preliminary Report By: Yessenia You MD Electronically signed By Yessenia You MD Dictated Date: 09/22/2023 7:06:26 PM Prelim Date: 09/22/2023 7:07:01 PM Sign Date: 09/22/2023 7:07:01 PM Ordering Provider: MUSHTAQ MOSES [facility] 09-22-2023 Note ORIGINAL EXAMINATION: CT OF THE HEAD WITHOUT CONTRAST 09/22/2023 6:57 pm TECHNIQUE: CT of the head was performed without the administration of intravenous contrast. Automated exposure control, iterative reconstruction, and/or weight based adjustment of the mA/kV was utilized to reduce the radiation dose to as low as reasonably achievable. COMPARISON: None. HISTORY: ORDERING SYSTEM PROVIDED HISTORY: Reason for Exam: Altered mental status FINDINGS: BRAIN/VENTRICLES: There is no acute intracranial hemorrhage, mass effect or midline shift. No abnormal extra-axial fluid collection. The chamberlain-white differentiation is maintained without evidence of an acute infarct. There is no evidence of hydrocephalus. ORBITS: The visualized portion of the orbits demonstrate no acute abnormality. SINUSES: The visualized paranasal sinuses and mastoid air cells demonstrate no acute abnormality. SOFT TISSUES/SKULL: No acute abnormality of the visualized skull or soft tissues. IMPRESSION: There is no evidence of mass, hemorrhage, or acute infarct. Interpreted by: Gregory Overton Preliminary Report By: Gregory Overton Electronically signed By Gregory Overton Dictated Date: 09/22/2023 7:13:35 PM Prelim Date: 09/22/2023 7:20:27 PM Sign Date: 09/22/2023 7:20:27 PM [facility] 09-22-2023 Note Sinus rhythm Abnormal R-wave progression, early transition Baseline wander in lead(s) V1,V2 Electronic Signature: MD JENNIFER ORNELAS MD 09/22/2023 18:07:15 [facility] 06-29-2023 Hospital Discharge instructions Patient Education 06/29/2023 14:14:54 Depression Affects Your Mind and Body Depression Affects Your Mind and Body Everyone feels sad or blue from time to time for a few days or weeks. Depression is when these feelings don't go away and they interfere with daily life. Depression is a real illness that can develop at any age. It is one of the most common mental health problems in the [place] Depression makes you feel sad, helpless, and hopeless. It gets in the way of your life and relationships. It inhibits your ability to think and act. But, with help, you can feel better again. Depression affects your whole body Brain chemicals affect your body as well as your mood. So depression may do more than just make you feel low. You may also feel bad physically. Depression can: Cause trouble with mental tasks such as remembering, concentrating, or making decisions Make you feel nervous and jumpy Cause trouble sleeping. Or you may sleep too much Change your appetite Cause headaches, stomachaches, or other aches and pains Drain your body of energy Depression and other illness It is common for people who have chronic health problems to also have depression. It can often be hard to tell which one caused the other. A person might become depressed after finding out they have a health problem. But some studies suggest being depressed may make certain health problems more likely. And some depressed people stop taking care of themselves. This may make them more likely to get sick. 1229-8544 [employer] [address] [place] [address]. All rights reserved. This information is not intended as a substitute for professional medical care. Always follow your healthcare professional's instructions. Follow Up Care 06/29/2023 11:32:02 With:BAMBI JAIME Address: [place] [address]- [phone] Business (1) When:2-4 days [facility] 06-29-2023 Note Discharge Instructions Thank you for allowing [facility] to assist you with your healthcare needs. The following is important discharge information regarding your hospital visit. Diagnosis from Today's Visit Visual hallucinations Weakness or fatigue What to Do Next Instructions from Your Care Team No qualifying data available. Post Acute Orders No qualifying data available. You Need to Schedule the Following Appointments Follow Up with BAMBI JAIME When Within 2-4 days Where: [place] [address]- [phone] Business (1) Allergies vitamin E (Itching, Hives) Medications Please ask your primary doctor or pharmacist before taking any other medication not listed, including over the counter drugs, herbal medications, vitamins and or supplements as they may interact with your home medications. What How Much When Why Instructions Last Dose Unchanged albuterol (albuterol MDI (90 mcg/ inh) CFC free inhalation aerosol) 2 puff(s) by inhalation Every 4 hours Duration: 30 Days ok to fill generic equivalent rescue inhaler Unchanged cholecalciferol (Vitamin D3) 400 unit(s) by mouth Every day Unchanged fluorouracil topical (fluorouracil 5% topical cream) 1 application Topical Two (2) times a day Actinic keratoses treat for 3 weeks then allow to heal. may repeat if needed. Unchanged hydrochlorothiazide-triamterene (hydrochlorothiazide-triamterene 25 mg-37.5 mg oral capsule) See instructions TAKE 1 CAPSULE DAILY Unchanged metoprolol (Lopressor 25mg--USE metoprolol tartrate 25 mg oral tablet) 1 tab(s) by mouth Two (2) times a day Unchanged simvastatin (simvastatin 20 mg oral tablet) 1 tab(s) by mouth Daily at bedtime Hyperlipidemia, mixed Please take this list to your next doctor s visit. Bring all medications you take, including over the counter medications, herbals and other supplements with you to your doctor s visit. Patients and families are reminded to discard old lists and to update any records with all medication providers or retail pharmacies. Education Materials Depression Affects Your Mind and Body Everyone feels sad or blue from time to time for a few days or weeks. Depression is when these feelings don't go away and they interfere with daily life. Depression is a real illness that can develop at any age. It is one of the most common mental health problems in the [place] Depression makes you feel sad, helpless, and hopeless. It gets in the way of your life and relationships. It inhibits your ability to think and act. But, with help, you can feel better again. Depression affects your whole body Brain chemicals affect your body as well as your mood. So depression may do more than just make you feel low. You may also feel bad physically. Depression can: Cause trouble with mental tasks such as remembering, concentrating, or making decisions Make you feel nervous and jumpy Cause trouble sleeping. Or you may sleep too much Change your appetite Cause headaches, stomachaches, or other aches and pains Drain your body of energy Depression and other illness It is common for people who have chronic health problems to also have depression. It can often be hard to tell which one caused the other. A person might become depressed after finding out they have a health problem. But some studies suggest being depressed may make certain health problems more likely. And some depressed people stop taking care of themselves. This may make them more likely to get sick. 3098-3370 [employer] [address] [place] [address]. All rights reserved. This information is not intended as a substitute for professional medical care. Always follow your healthcare professional's instructions. Additional Information VACCINATE! IT SAVES LIVES! Members of the community who have not yet received the COVID-19 vaccine and would like to receive it can visit one of [facility] vaccine clinics. There are many vaccine clinic locations within the [facility]. For locations and available times, please visit [email or web address] [email or web address] It is important to note that some COVID mobile vaccine clinics are held outdoors and may be canceled in rainy or stormy conditions. To learn more about pediatric vaccinations (ages 5-11), we invite you to visit the [facility] webpage. [email or web address].org/pa [email or web address]-Qrjrp-Oaignhshbbh-[email or web address] [email or web address]-[email or web address]-[email or web address].html To learn more about the COVID-19 vaccine, we invite you to visit the CDC website for a list of frequently asked questions. https://www.cdc.gov/coronavirus/2 019-ncov/vaccines/faq.html [facility] Patient Portal Access Instructions: Stay connected with your healthcare team and access your personal medical information anytime with the [facility] Patient Portal. If you would like a full copy of your medical records please contact the [facility] Medical Records Department Thursday through Thursday between 8a.m. and 4:30p.m. Please follow the directions below to access the portal: 1.Access the email account you provided upon registration to the [facility].2.Look for an invitation email from [facility].3.Open the email and access the invitation link: Accept Invitation to [facility].Fill in the required bravo to create your account. Sign into [email or web address].[email or web address] with your username and password that you created in the above steps to stay up to date. You can then view a summary of results, a summary of your visits, and the ability to download your summaries to your computer or send the information securely to a physician. Remember that your healthcare information is confidential, so carefully consider who you will allow to register on the [facility] Patient Portal for access to your information. You can also access the [facility] Patient Portal on the [employer]. Simply click on Health Records under Health Data and then click on the [employer] logo. HOW TO SAFELY DISPOSE OF PRESCRIPTION MEDICATIONS Please use one of the following methods to safely dispose of your unused medications. 1.Use a drug disposal kit: the drug disposal pouch allows you to safely discard your old and unused drugs. Ask your nurse to give you one when you are discharged.2.Visit a local take-back location: Many local pharmacies and police departments have programs that collect old and unwanted prescription drugs. Call your local pharmacy or go to http://Pandabus.[employer]/3E1Nu6c to find one close to you.3.Make use of household items: Use cat litter or old coffee grounds to dispose medications if other options are not available. Mix your drugs with these household products, seal them in an airtight container and throw it into the garbage. Call [facility]: [phone] to be sure your drugs can be disposed of in this way. Some medicines may require a different approach.4.Never flush your medications down the toilet. IF YOU HAVE BEEN PRESCRIBED AN OPIOIDS FOR PAIN If you have been prescribed an opioid (such as hydrocodone, oxycodone or morphine), it is critical to understand the possible side effects and risks of opioid pain medications. Even when taken as directed, opioids can have several side effects including: Tolerance, meaning you might need to take more of a medication for the same pain relief. Nausea, vomiting and/or constipation. Sleepiness, dizziness, dry mouth, confusion, depression or itching. Physical dependence, meaning you have withdrawal symptoms when a medication is stopped ? this can develop within a few days. KNOW YOUR RESPONSIBILITIES It is important to know exactly how much and how often to take the opioid pain medications you are prescribed. Never take opioids in higher amounts or more often than prescribed. Do not combine opioids with alcohol or other drugs that cause drowsiness, such as benzodiazepines, also known as benzos, including diazepam and alprazolam, muscle relaxants or sleep aids. Never sell or share prescription opioids. This is illegal. Store opioids in a secure place and out of reach of others (including children, family, friends and visitors). The last page(s) of this document has been signed and retained as a CHART COPY Signatures Patient Education Materials Depression Affects Your Mind and Body Medication Leaflets My discharge plan and instructions have been reviewed and explained to me and I,CONY DERRICK Pavan understand my current condition and have read and understand these discharge instructions. I have received a written copy of the plan/instructions. If I have questions, I am aware that I should contact my doctor. 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 The aorta is atherosclerotic. There is no focal consolidation, pleural effusion, vascular congestion, or pneumothorax. Multilevel degenerative changes are identified in the spine. IMPRESSION: No acute radiographic cardiopulmonary findings. Interpreted by: Yessenia You MD Preliminary Report By: Yessenia You MD Electronically signed By Yessenia You MD Dictated Date: 06/29/2023 1:04:00 PM Prelim Date: 06/29/2023 1:05:23 PM Sign Date: 06/29/2023 1:05:23 PM Ordering Provider: NYA HURLEY [facility] 06-29-2023 Note Sinus rhythm Abnormal R-wave progression, early transition Baseline wander in lead(s) III Electronic Signature: DANNIELLE MTZ MD 06/29/2023 14:00:17 [facility] 06-29-2023 Note ORIGINAL EXAMINATION: CT OF THE HEAD WITHOUT CONTRAST 06/29/2023 1:00 pm TECHNIQUE: CT of the head was performed without the administration of intravenous contrast. Automated exposure control, iterative reconstruction, and/or weight based adjustment of the mA/kV was utilized to reduce the radiation dose to as low as reasonably achievable. COMPARISON: None. HISTORY: ORDERING SYSTEM PROVIDED HISTORY: Reason for Exam: Pt has recently been experiencing visual hallucinations. Reports a fall about a week ago. Denies VERA or dizziness currently but states balance seems off . Altered mental status FINDINGS: BRAIN/VENTRICLES: There is no acute intracranial hemorrhage, mass effect or midline shift. No abnormal extra-axial fluid collection. There is age-related central atrophy and microangiopathic change. The chamberlain-white differentiation is maintained without evidence of an acute infarct. There is no evidence of hydrocephalus. ORBITS: The visualized portion of the orbits demonstrate no acute abnormality. SINUSES: The visualized paranasal sinuses and mastoid air cells demonstrate no acute abnormality. SOFT TISSUES/SKULL: No acute abnormality of the visualized skull or soft tissues. IMPRESSION: No acute intracranial abnormality. Interpreted by: Joao Ardon MD Preliminary Report By: Joao Ardon MD Electronically signed By Joao Ardon MD Dictated Date: 06/29/2023 1:05:42 PM Prelim Date: 06/29/2023 1:06:18 PM Sign Date: 06/29/2023 1:06:18 PM Ordering Provider: NYA HURLEY [facility] 09-11-2022 Hospital Discharge instructions Patient Education 09/11/2022 09:21:11 Adult Self-Care for Colds and Flu Adult Self-Care for Colds Colds are caused by viruses. They can t be cured with antibiotics. However, you can relieve symptoms and support your body s efforts to heal itself. No matter which symptoms you have, be sure to drink plenty of fluids (water or clear soup); stop smoking and drinking alcohol; and get plenty of rest. Understand a fever Take your temperature several times a day. If your fever is 100.4 F (38.0 C) for more than a day, call your doctor. Relax, lie down. Go to bed if you want. Just get off your feet and rest. Also, drink plenty of fluids to avoid dehydration. Take acetaminophen or a nonsteroidal anti-inflammatory agent (NSAID), such as ibuprofen. Treat a troubled nose kindly Breathe steam or heated humidified air to open blocked nasal passages. spinning lathe operator a hot shower or use a vaporizer. Be careful not to get burned by the steam. Saline nasal sprays and decongestant tablets help open a stuffy nose. Antihistamines can also help, but they can cause side effects such as drowsiness and drying of the eyes, nose, and mouth. Soothe a sore throat and cough Gargle every 2 hours with 1/4 teaspoon of salt dissolved in 1/2 cup of warm water. Suck on throat lozenges and cough drops to moisten your throat. Cough medicines are available but it is unclear how effective they actually are. Take acetaminophen or an NSAID, such as ibuprofen to ease throat pain Ease digestive problems Put fluid back into your body. Take frequent sips of clear liquids such as water or broth. Do not drink beverages with a lot of sugar in them, such as juices and sodas. These can make diarrhea worse. Older children and adults can drink sports drinks. As your appetite returns, you can resume your normal diet. Ask your doctor whether there are any foods you should avoid. When to seek medical care When you first notice symptoms, ask your health care provider if antiviral medications are appropriate. Antibiotics should not be taken for colds or flu. Also, call your doctor if you have any of the following symptoms or if you aren t feeling better after 7 days: Shortness of breath Pain or pressure in the chest or abdomen Worsening symptoms, especially after a period of improvement Fever of 100.4 F (38.0 C) or higher, or fever that doesn t go down with medication Sudden dizziness or confusion Severe or continued vomiting Signs of dehydration, including extreme thirst, dark urine, infrequent urination, dry mouth Spotted, red, or very sore throat [id number] [employer] [address] [place] [address], [place] [address]. All rights reserved. This information is not intended as a substitute for professional medical care. Always follow your healthcare professional's instructions. Follow Up Care 09/11/2022 07:34:03 With:BAMBI JAIME DO Address: [place] [address]- [phone] When:2-4 days [facility] 09-11-2022 Note Discharge Instructions Thank you for allowing [facility] to assist you with your healthcare needs. The following is important discharge information regarding your hospital visit. Diagnosis from Today's Visit Cough Upper respiratory infection Cough What to Do Next Instructions from Your Care Team No qualifying data available. Post Acute Orders No qualifying data available. You Need to Schedule the Following Appointments Follow Up with BAMBI JAIME DO When Within 2-4 days Where: [place] [address]- [phone] Allergies vitamin E (Itching, Hives) Medications Please ask your primary doctor or pharmacist before taking any other medication not listed, including over the counter drugs, herbal medications, vitamins and or supplements as they may interact with your home medications. What How Much When Why Instructions Last Dose New azithromycin (Zithromax Z-Marty 250 mg oral tablet) Take two (2) tablets day 1-then one (1) tablet by mouth Every day Cough Upper respiratory infection Duration: 5 Days as directed on package labeling Printed Prescription New benzonatate (Tessalon Perles 100 mg oral capsule) 1 cap by mouth Three (3) times a day as needed for as needed for cough Cough Upper respiratory infection Duration: 7 Days Printed Prescription Unchanged cholecalciferol (Vitamin D3) 400 unit(s) by mouth Every day Unchanged hydrochlorothiazide-triamterene (hydrochlorothiazide-triamterene 25 mg-37.5 mg oral capsule) See instructions TAKE 1 CAPSULE DAILY Unchanged metoprolol (Lopressor 25mg--USE metoprolol tartrate 25 mg oral tablet) 1 tab(s) by mouth Two (2) times a day Unchanged simvastatin (simvastatin 20 mg oral tablet) 1 tab(s) by mouth Daily at bedtime Hyperlipidemia, mixed Unchanged tamsulosin (Flomax 0.4 mg oral capsule) 1 cap by mouth Once a day Nephrolithiasis Please take this list to your next doctor s visit. Bring all medications you take, including over the counter medications, herbals and other supplements with you to your doctor s visit. Patients and families are reminded to discard old lists and to update any records with all medication providers or retail pharmacies. Medication Leaflets azithromycin (oral/injection) (a LILY MARROQUIN sin) Azithromycin 3 Day Dose Pack, Azithromycin 5 Day Dose Pack, Zithromax, Zithromax IV, Zithromax TRI-MARTY, Zithromax Z-Marty What is the most important information I should know about azithromycin? You should not use azithromycin if you have ever had an allergic reaction, jaundice, or liver problems while taking this medicine. You should not use azithromycin if you have ever had a severe allergic reaction to similar drugs such as clarithromycin, erythromycin, or telithromycin. What is azithromycin? Azithromycin is used to treat many different types of infections caused by bacteria, including infections of the lungs, sinus, throat, tonsils, skin, urinary tract, cervix, or genitals. Azithromycin may also be used for purposes not listed in this medication guide. What should I discuss with my healthcare provider before using azithromycin? You should not use azithromycin if you are allergic to it, or if you have ever had: jaundice or liver problems caused by taking azithromycin; or a severe allergic reaction to similar drugs such as clarithromycin, erythromycin, or telithromycin. Azithromycin oral should not be used to treat pneumonia in people who have: cystic fibrosis; an infection after being in a hospital; an infection in the blood; a weak immune system (caused by diseases such as HIV/AIDS or cancer); or in older adults and those who are ill or debilitated. Tell your doctor if you have ever had: pneumonia; liver or kidney disease; myasthenia gravis; low levels of potassium in your blood; a heart rhythm disorder; or long QT syndrome (in you or a family member). It is not known whether this medicine is effective in treating genital ulcers in women. Tell your doctor if you are or . Taking azithromycin while may cause diarrhea, vomiting, or rash in the nursing baby. Azithromycin is not approved for use by anyone younger than 6 months old. Azithromycin should not be used to treat a throat or tonsil infection in a child younger than 2 years old. How should I take azithromycin? Follow all directions on your prescription label and read all medication guides or instruction sheets. Use the medicine exactly as directed. Azithromycin oral is taken by mouth. Azithromycin injection is given as an infusion into a vein, usually for 2 days before you switch to azithromycin oral. A healthcare provider will give you this injection. You may take azithromycin oral with or without food. Shake the oral suspension (liquid) before you measure a dose. Use the dosing syringe provided, or use a medicine dose-measuring device (not a kitchen spoon). Use this medicine for the full prescribed length of time, even if your symptoms quickly improve. Skipping doses can increase your risk of infection that is resistant to medication. Azithromycin will not treat a viral infection such as the flu or a common cold. Store at room temperature away from moisture and heat. Throw away any unused liquid medicine after 10 days. What happens if I miss a dose? Take the medicine as soon as you can, but skip the missed dose if it is almost time for your next dose. Do not take two doses at one time. What happens if I overdose? Seek emergency medical attention or call the Poison Help line at . What should I avoid while taking azithromycin? Antibiotic medicines can cause diarrhea, which may be a sign of a new infection. If you have diarrhea that is watery or bloody, call your doctor before using anti-diarrhea medicine. Azithromycin could make you sunburn more easily. Avoid sunlight or tanning beds. Wear protective clothing and use sunscreen (SPF 30 or higher) when you are outdoors. What are the possible side effects of azithromycin? Get emergency medical help if you have signs of an allergic reaction (hives, difficult breathing, swelling in your face or throat) or a severe skin reaction (fever, sore throat, burning in your eyes, skin pain, red or purple skin rash that spreads and causes blistering and peeling). Seek medical treatment if you have a serious drug reaction that can affect many parts of your body. Symptoms may include: skin rash, fever, swollen glands, muscle aches, severe weakness, unusual bruising, or yellowing of your skin or eyes. Call your doctor at once if you have: severe stomach pain, diarrhea that is watery or bloody; fast or pounding heartbeats, fluttering in your chest, shortness of breath, and sudden dizziness (like you might pass out); or liver problems--nausea, vomiting, loss of appetite, stomach pain (upper right side), tiredness, itching, dark urine, tariq-colored stools, jaundice (yellowing of the skin or eyes); Call your doctor right away if a baby taking azithromycin becomes irritable or vomits while eating or nursing. Older adults may be more likely to have side effects on heart rhythm, including a life-threatening fast heart rate. Common side effects may include: nausea, vomiting; or stomach pain. This is not a complete list of side effects and others may occur. Call your doctor for medical advice about side effects. You may report side effects to FDA at 1-925-UGM-8813. What other drugs will affect azithromycin? Tell your doctor about all your other medicines, especially: colchicine; digoxin; nelfinavir; phenytoin; an antacid that contains aluminum or magnesium--Acid Gone, Gaviscon, Gelusil, Maalox, Milk of Magnesia, Mylanta, Pepcid Complete, Rolaids, Rulox, and others; or a blood thinner--warfarin, Coumadin, Jantoven. This list is not complete. Other drugs may affect azithromycin, including prescription and krgu-nsb-sealrqe medicines, vitamins, and herbal products. Not all possible drug interactions are listed here. Where can I get more information? Your pharmacist can provide more information about azithromycin. Remember, keep this and all other medicines out of the reach of children, never share your medicines with others, and use this medication only for the indication prescribed. Every effort has been made to ensure that the information provided by [employer]. ('[employer]') is accurate, up-to-date, and complete, but no guarantee is made to that effect. Drug information contained herein may be time sensitive. [employer] information has been compiled for use by healthcare practitioners and consumers in the [place] and therefore [employer] does not warrant that uses outside of the [place] are appropriate, unless specifically indicated otherwise. [employer] drug information does not endorse drugs, diagnose patients or recommend therapy. [employer] drug information is an informational resource designed to assist licensed healthcare practitioners in caring for their patients and/or to serve consumers viewing this service as a supplement to, and not a substitute for, the expertise, skill, knowledge and judgment of healthcare practitioners. The absence of a warning for a given drug or drug combination in no way should be construed to indicate that the drug or drug combination is safe, effective or appropriate for any given patient. [employer] does not assume any responsibility for any aspect of healthcare administered with the aid of information [facility] provides. The information contained herein is not intended to cover all possible uses, directions, precautions, warnings, drug interactions, allergic reactions, or adverse effects. If you have questions about the drugs you are taking, check with your doctor, nurse or pharmacist. Copyright 2979-8473 [facility] [employer]. Version: 18.01. Revision Date: 02/10/2019. benzonatate (soledad colby) Yeyo Hassan What is the most important information I should know about benzonatate? Never suck or chew on a benzonatate capsule. Swallow the pill whole. Sucking or chewing the capsule may cause serious side effects. Benzonatate is not approved for use by anyone younger than 10 years old. An overdose of benzonatate can be fatal to a young child. What is benzonatate? Benzonatate is used to relieve coughing. Benzonatate is a non-narcotic cough medicine that numbs the throat and lungs, making the cough reflex less active. Benzonatate may also be used for purposes not listed in this medication guide. What should I discuss with my healthcare provider before taking benzonatate? You should not use this medicine if you are allergic to benzonatate or topical numbing medicines such as tetracaine or procaine (found in some insect bite and sunburn creams). Tell your doctor if you are or . Benzonatate is not approved for use by anyone younger than 10 years old. An overdose of benzonatate can be fatal, especially to a young child who has accidentally swallowed the medicine. How should I take benzonatate? Follow all directions on your prescription label and read all medication guides or instruction sheets. Use the medicine exactly as directed. Never suck or chew on a benzonatate capsule. Swallow the pill whole. Sucking or chewing the capsule may cause serious side effects. Store at room temperature away from moisture, heat, and light. What happens if I miss a dose? Skip the missed dose and use your next dose at the regular time. Do not use two doses at one time. What happens if I overdose? Seek emergency medical attention or call the Poison Help line at . An overdose of benzonatate can be fatal, especially to a child. Accidental has occurred in children under 10 years old. Overdose symptoms may include tremors, feeling restless, seizure (convulsions), slow heart rate, weak pulse, fainting, and slow breathing (breathing may stop). What should I avoid while taking benzonatate? Avoid eating or drinking anything while you feel numbness or tingling in your mouth or throat. What are the possible side effects of benzonatate? Stop taking this medicine and get emergency medical help if you have signs of an allergic reaction: hives; difficult breathing; swelling of your face, lips, tongue, or throat. Call your doctor at once if you have: severe drowsiness or dizziness; confusion, hallucinations. ongoing numbness or tingling in your mouth, throat, or face; numbness in your chest; a choking feeling; chills; or burning in your eyes. Some of these side effects may result from chewing or sucking on a benzonatate capsule. Common side effects may include: headache, dizziness; nausea, upset stomach; constipation; itching, rash; or stuffy nose. This is not a complete list of side effects and others may occur. Call your doctor for medical advice about side effects. You may report side effects to FDA at 9-104-OYJ-3066. What other drugs will affect benzonatate? Using benzonatate with other drugs that make you drowsy can worsen this effect. Ask your doctor before using opioid medication, a sleeping pill, a muscle relaxer, or medicine for anxiety or seizures. Other drugs may affect benzonatate, including prescription and unrs-vgg-ribrpxs medicines, vitamins, and herbal products. Tell your doctor about all your current medicines and any medicine you start or stop using. Where can I get more information? Your pharmacist can provide more information about benzonatate. Remember, keep this and all other medicines out of the reach of children, never share your medicines with others, and use this medication only for the indication prescribed. Every effort has been made to ensure that the information provided by [employer]. ('[employer]') is accurate, up-to-date, and complete, but no guarantee is made to that effect. Drug information contained herein may be time sensitive. [employer] information has been compiled for use by healthcare practitioners and consumers in the [place] and therefore [employer] does not warrant that uses outside of the [place] are appropriate, unless specifically indicated otherwise. [employer] drug information does not endorse drugs, diagnose patients or recommend therapy. The [employer] drug information is an informational resource designed to assist licensed healthcare practitioners in caring for their patients and/or to serve consumers viewing this service as a supplement to, and not a substitute for, the expertise, skill, knowledge and judgment of healthcare practitioners. The absence of a warning for a given drug or drug combination in no way should be construed to indicate that the drug or drug combination is safe, effective or appropriate for any given patient. [employer] does not assume any responsibility for any aspect of healthcare administered with the aid of information [employer] provides. The information contained herein is not intended to cover all possible uses, directions, precautions, warnings, drug interactions, allergic reactions, or adverse effects. If you have questions about the drugs you are taking, check with your doctor, nurse or pharmacist. Copyright 7690-9079 [employer]. Version: 9.01. Revision Date: 07/21/2019. Education Materials Adult Self-Care for Colds Colds are caused by viruses. They can t be cured with antibiotics. However, you can relieve symptoms and support your body s efforts to heal itself. No matter which symptoms you have, be sure to drink plenty of fluids (water or clear soup); stop smoking and drinking alcohol; and get plenty of rest. Understand a fever Take your temperature several times a day. If your fever is 100.4 F (38.0 C) for more than a day, call your doctor. Relax, lie down. Go to bed if you want. Just get off your feet and rest. Also, drink plenty of fluids to avoid dehydration. Take acetaminophen or a nonsteroidal anti-inflammatory agent (NSAID), such as ibuprofen. Treat a troubled nose kindly Breathe steam or heated humidified air to open blocked nasal passages. spinning lathe operator a hot shower or use a vaporizer. Be careful not to get burned by the steam. Saline nasal sprays and decongestant tablets help open a stuffy nose. Antihistamines can also help, but they can cause side effects such as drowsiness and drying of the eyes, nose, and mouth. Soothe a sore throat and cough Gargle every 2 hours with 1/4 teaspoon of salt dissolved in 1/2 cup of warm water. Suck on throat lozenges and cough drops to moisten your throat. Cough medicines are available but it is unclear how effective they actually are. Take acetaminophen or an NSAID, such as ibuprofen to ease throat pain Ease digestive problems Put fluid back into your body. Take frequent sips of clear liquids such as water or broth. Do not drink beverages with a lot of sugar in them, such as juices and sodas. These can make diarrhea worse. Older children and adults can drink sports drinks. As your appetite returns, you can resume your normal diet. Ask your doctor whether there are any foods you should avoid. When to seek medical care When you first notice symptoms, ask your health care provider if antiviral medications are appropriate. Antibiotics should not be taken for colds or flu. Also, call your doctor if you have any of the following symptoms or if you aren t feeling better after 7 days: Shortness of breath Pain or pressure in the chest or abdomen Worsening symptoms, especially after a period of improvement Fever of 100.4 F (38.0 C) or higher, or fever that doesn t go down with medication Sudden dizziness or confusion Severe or continued vomiting Signs of dehydration, including extreme thirst, dark urine, infrequent urination, dry mouth Spotted, red, or very sore throat [id number] [employer] [address] [place] [address]. All rights reserved. This information is not intended as a substitute for professional medical care. Always follow your healthcare professional's instructions. Additional Information VACCINATE! IT SAVES LIVES! Members of the community who have not yet received the COVID-19 vaccine and would like to receive it can visit one of [facility] vaccine clinics. There are many vaccine clinic locations within the [facility]. For locations and available times, please visit [email or web address]. It is important to note that some COVID mobile vaccine clinics are held outdoors and may be canceled in rainy or stormy conditions. To learn more about pediatric vaccinations (ages 5-11), we invite you to visit the [facility] webpage. [email or web address] To learn more about the COVID-19 vaccine, we invite you to visit the [place] website for a list of frequently asked questions. [email or web address] [email or web address] [facility] Patient Portal Access Instructions: Stay connected with your healthcare team and access your personal medical information anytime with the [facility] Patient Portal. If you would like a full copy of your medical records please contact the [facility] Medical Records Department Thursday through Thursday between 8a.m. and 4:30p.m. Please follow the directions below to access the portal: 1.Access the email account you provided upon registration to the [facility].2.Look for an invitation email from [facility].3.Open the email and access the invitation link: Accept Invitation to [facility]4.Fill in the required bravo to create your account. Sign into [email or web address] with your username and password that you created in the above steps to stay up to date. You can then view a summary of results, a summary of your visits, and the ability to download your summaries to your computer or send the information securely to a physician. Remember that your healthcare information is confidential, so carefully consider who you will allow to register on the [facility] [employer] Patient Portal for access to your information. You can also access the [facility] Patient Portal on the [employer]. Simply click on Health Records under Health Data and then click on the [employer] logo. HOW TO SAFELY DISPOSE OF PRESCRIPTION MEDICATIONS Please use one of the following methods to safely dispose of your unused medications. 1.Use a drug disposal kit: the drug disposal pouch allows you to safely discard your old and unused drugs. Ask your nurse to give you one when you are discharged.2.Visit a local take-back location: Many local pharmacies and police departments have programs that collect old and unwanted prescription drugs. Call your local pharmacy or go to http://bit.ly/9U0Du6b to find one close to you.3.Make use of household items: Use cat litter or old coffee grounds to dispose medications if other options are not available. Mix your drugs with these household products, seal them in an airtight container and throw it into the garbage. Call [facility]: [phone] to be sure your drugs can be disposed of in this way. Some medicines may require a different approach.4.Never flush your medications down the toilet. IF YOU HAVE BEEN PRESCRIBED AN OPIOIDS FOR PAIN If you have been prescribed an opioid (such as hydrocodone, oxycodone or morphine), it is critical to understand the possible side effects and risks of opioid pain medications. Even when taken as directed, opioids can have several side effects including: Tolerance, meaning you might need to take more of a medication for the same pain relief. Nausea, vomiting and/or constipation. Sleepiness, dizziness, dry mouth, confusion, depression or itching. Physical dependence, meaning you have withdrawal symptoms when a medication is stopped ? this can develop within a few days. KNOW YOUR RESPONSIBILITIES It is important to know exactly how much and how often to take the opioid pain medications you are prescribed. Never take opioids in higher amounts or more often than prescribed. Do not combine opioids with alcohol or other drugs that cause drowsiness, such as benzodiazepines, also known as benzos, including diazepam and alprazolam, muscle relaxants or sleep aids. Never sell or share prescription opioids. This is illegal. Store opioids in a secure place and out of reach of others (including children, family, friends and visitors). The last page(s) of this document has been signed and retained as a CHART COPY Signatures Patient Education Materials Adult Self-Care for Colds and Flu Medication Leaflets azithromycin (oral/injection), benzonatate My discharge plan and instructions have been reviewed and explained to me and I,DERRICK DONNELLY understand my current condition and have read and understand these discharge instructions. I have received a written copy of the plan/instructions. If I have questions, I am aware that I should contact my doctor. 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 Heart size and mediastinal contours are within normal limits for age and projection. No acute skeletal abnormality. Minimal calcification of aorta. Dorsal spondylosis. IMPRESSION: No acute cardiopulmonary process. Interpreted by: Benjamin Naik MD Preliminary Report By: Benjamin Naik MD Electronically signed By Benjamin Naik MD Dictated Date: 09/11/2022 8:48:20 AM Prelim Date: 09/11/2022 8:48:50 AM Sign Date: 09/11/2022 8:48:50 AM Ordering Provider: SURJIT [facility]3] 09-11-2022 Note ORIGINAL EXAMINATION: TWO XRAY VIEWS OF THE CHEST09/11/2022 8:41 am XR Chest two views COMPARISON: None HISTORY: ORDERING SYSTEM PROVIDED HISTORY: Reason for Exam: SOB/Cough/Fever, FINDINGS: No acute infiltrate, consolidation,mass, pneumothorax, pleural fluid, or vascular congestion is seen. Heart size and mediastinal contours are within normal limits for age and projection. No acute skeletal abnormality. Minimal calcification of aorta. Dorsal spondylosis. IMPRESSION: No acute cardiopulmonary process. Interpreted by: Benjamin Naik MD Preliminary Report By: Benjamin Naik MD Electronically signed By Benjamin Naik MD Dictated Date: 09/11/2022 8:48:20 AM Prelim Date: 09/11/2022 8:48:50 AM Sign Date: 09/11/2022 8:48:50 AM Ordering Provider: SURJIT [facility]3] 09-11-2022 SARS-CoV-2 (COVID-19) RNA GUILHERME+probe Ql (Nph) Negative *NA* (09/11/22 7:56 AM) AO Auto Urine SS 11-12-2021 Evaluation + Plan note Future Scheduled TestsComplete Blood Count 11/12/21Lipid Profile 09/08/22Lipid Profile 08/29/22Complete Metabolic Panel 11/12/21Complete Metabolic Panel 09/08/22Complete Metabolic Panel 08/29/22 [facility] Evaluation + Plan note Future Appointments Appointment Date:08/29/2021 11:00:00 AM Scheduled Provider:BAMBI JAIME DO Location:[facility] Appointment Type:PC OV [facility] Evaluation + Plan note Future Appointments Appointment Date:09/01/2022 10:50:00 AM Scheduled Provider:BAMBI JAIME DO Location:[facility] Appointment Type:PC Wellness Medicare Future Scheduled TestsComplete Blood Count 11/12/21Lipid Profile 08/29/22Complete Metabolic Panel 11/12/21Complete Metabolic Panel 08/29/22 [facility] Evaluation + Plan note Future Appointments Appointment Date:07/01/2023 03:05:00 PM Scheduled Provider:BAMBI JAIME DO Location:[facility] Appointment Type:PC OV Future Scheduled TestsLipid Profile 08/26/Lipid Profile 09/08/22Lipid Profile 08/29/22Complete Metabolic Panel 08/26/23Complete Metabolic Panel 09/08/22Complete Metabolic Panel 08/29/22 [facility] Evaluation + Plan note Future Appointments Appointment Date:07/09/2023 02:00:00 PM Scheduled Provider:BAMBI JAIME DO Location:[facility] Appointment Type:PC OV Follow Up Future Scheduled TestsLipid Profile 08/26/Lipid Profile 09/08/22Lipid Profile 08/29/22Complete Metabolic Panel 08/26/23Complete Metabolic Panel 09/08/22Complete Metabolic Panel 08/29/22 [facility] Evaluation + Plan note Future Appointments Appointment Date:09/30/2023 08:30:00 AM Scheduled Provider:BAMBI JAIME DO Location:[facility] Appointment Type:PC OV Diagnostic Tests PendingVitamin B12 Level 09/22/23 Future Scheduled TestsMagnesium Level 10/08/23Thyroid Stimulating Hormone 10/08/23Vitamin B12 Level 10/08/23Lipid Profile 08/26/23Lipid Profile 08/29/22Complete Metabolic Panel 10/08/23Complete Metabolic Panel 08/26/23Complete Metabolic Panel 08/29/22 [facility] Hospital course Narrative No data available for this section [facility] Hospital Discharge instructions No data available for this section [facility] Progress note No data available for this section [facility] Summary Purpose Family History No Family History Records Found No data available for this section No data available for this section No data available for this section No Family History Records Found Advance Directives No Advanced Directives Records FoundNo Advanced Directives Records Found Additional Source Comments (unrecognized sect ion and content) No Status Records FoundNo Status Records Found INFORMATION SOURCE (unrecogn ized section and content) DATE CREATED AUTHOR AUTHOR'S ORGANIZ ATION 09/29/2023 [facility] [place] ([place]) Care Team (unrecognized sect ion and content) Care Team Personnel Name: BAMBI JAIME DO Position: P4 Physician - Primary Care Member Role: Primary Care Physician Address: Address: [address] Name: SURJIT GIBBS MD Position: ED Physician Member Role: Attending Physician Address: Address: [address] [place], [place] [address] Name: ORTEGA Sheth Position: AO RN Member Role: ED RN Care Team Related Persons Name: TG JUAREZ Patient Care team informatio n (unrecognized section and content) Care Team Personnel Name: BAMBI JAIME DO Position: P4 Physician - Primary Care Member Role: Primary Care Physician Address: Address: [address] Name: NYA HURLEY DO Position: Resident Member Role: Resident Address: Address: [address] [facility] [place] [address]- Name: Petrona Zuniga RN Position: RN Member Role: ED RN Care Team Related Persons Name: ISMAELPABLO TG Care Team Personnel Name: BAMBI JAIME DO Position: P4 Physician - Primary Care Member Role: Primary Care Physician Address: Address: [address] [place] [address]- [place] Care Team Related Persons Name: JOSE HOGAN Name: HARDEEP DONNELLY Address: Home [address] [place] [address] Care Team Personnel Name: BAMBI JAIME DO Position: P4 Physician - Primary Care Member Role: Primary Care Physician Address: Address: [address] [place] [address]- Name: MUSHTAQ MOSES DO Position: Resident Member Role: Resident Address: Address: [address] [facility] [place] [address]- Name: DANNIELLE MTZ MD Position: ED Physician Member Role: Attending Physician Address: Address: [facility] [address] [place] [address]- Name: MD JENNIFER ORNELAS MD Position: ED Physician Member Role: ED Physician Address: Address: [facility] [address] [place] [address]- Name: Linnette Murguia RN Position: ED RN Member Role: ED RN Care Team Related Persons Name: JOSE HOGAN Name: HARDEEP DONNELLY Address: Home [address] [place] [address] US FOR RECORDS PERTAINING TO PATIENTS WHO ARE OR HAVE BEEN ENROLLED IN A CHEMICAL DEPENDENCY/SUBSTANCEABUSE PROGRAM, SOME INFORMATION MAY BE OMITTED. This clinical summary was aggregated from multiple sources. Caution should be exercised in using it in the provision of clinical care. This summary normalizes information from multiple sources, and as a consequence, information in this document may materially change the coding, format and clinical context of patient data. In addition, data may be omitted in some cases. CLINICAL DECISIONS SHOULD BE BASED ON THE PRIMARY CLINICAL RECORDS. [facility] [employer] provides no warranty or guarantee of the accuracy or completeness of information in this document.
[2023-10-21 14:27] LABS: Bacteria 0 SEEN /hpf (None Seen); Mucous, Urine 0 SEEN /hpf (<or=2+); Red Blood Cells-Urine 0 SEEN /hpf (0-5); White Blood Cells 0 SEEN /hpf (0-5)
[2023-10-21 14:31] LABS: Amphetamine Urine VISTA NEGATIVE (<1000 ng/mL); Barbiturate Urine VISTA NEGATIVE (< 200 ng/mL); Benzodiazepine Urine VISTA NEGATIVE (< 200 ng/mL); Cocaine Urine VISTA NEGATIVE (< 300 ng/mL); Ecstacy Urine VISTA NEGATIVE (< 500 ng/mL); Methadone Urine VISTA NEGATIVE (< 300 ng/mL); PCP Urine VISTA NEGATIVE (< 25 ng/mL); THC Urine VISTA NEGATIVE (< 50 ng/mL); Vista UDS pH Range 6
[2023-10-21 14:35] LABS: Color, Urine Yellow (Yellow); Glucose, Dipstick Normal (Normal); Ketone-Dipstick Negative (Negative); Leukocyte Esterase-Dipstick Negative /ul (Negative); Nitrite-Dipstick Negative (Negative); Occult Blood-Urine 10 /ul (Negative); Protein-Dipstick Negative (Negative); Specific Gravity, Urine 1.005 (1.002-1.030); Urine Bilirubin Dipstick Negative (Negative); Urine Clarity Clear (Clear); Urine Urobilinogen Normal (Normal)
[2023-10-21 14:44] LABS: Squamous Epithelial Cells - UA 0-5 SEEN /hpf (0-5)
--- NOTE | 2023-10-21 15:22 | ED.RN ---
pt hallucinating and states that his sister sitting in the room with him is going to be taking him home. pt is alone in the rooma t this time. dr. bustos notified by charge nurse oksana. pt states he is not staying and walks out. dr rivas states that he doesnt have enough for him to be pink slipped
--- NOTE | 2023-10-21 15:53 | ED.RN ---
PT COMES TO DESK REPORTING THAT HIS SISTER THAT IS PRESENT IN HIS ROOM WILL BE TAKING HIM HOME. PT WAS ALONE IN ROOM, SISTER HAS NOT BEEN IN THE ED THE ENTIRE VISIT. PT REPORTS THAT HE IS READY TO GO HOME. THIS RN ASKS PT TO RETURN TO ROOM, WHILE THIS RN HELPS TO FIND PT A RIDE HOME, AND GET A PLAN FIGURED OUT. PT IS DRESSED APPROPRIATELY FOR THE WEATHER, AND HAS ADDITIONAL BELONGINGS IN HAND. THIS RN CALL PT SISTER JOSE LISTED IN HIS CHART A CONTACT. PER SISTER, PT WAS TO BE SEEN SENT TO PSYCHIATRIC FACILITY. THIS RN REPORTS THAT SHE WILL SPEAK WITH PHYSICIAN THAT SAW HIM, AND CALL BACK. THIS RN TALKS WITH DR. TATUM IN CONCERN FOR PATIENT HALLUCINATING. PER DR. TATUM, PT DOES NOT MEET CRITERIA FOR A PINK SLIP DESPITE THE HALLUCINATIONS, PT IS NOT TRYING TO HARM SELF OR OTHERS, AND IS CARING FOR HIMSELF APPROPRIATELY AT HOME. PT WAS SENT IN PER DR. BRICENO TO BE MEDICALLY CLEARED SO THAT HE CAN PLACE THE PATIENT ON MEDICATIONS FOR THE HALLUCINATIONS. PT REPORTS HE WANTS TO LEAVE AND AMBULATES OUT TO THE WAITING AREA. PT REPORTS HIS NEIGHBOR FRIEND HAD DROPPED HIM OFF AT THE ED AND REQUESTS THIS RN ASSIST HIM IN CALLING. THIS RN CALLS JANELL AND REQUEST RIDE HOME, JANELL REPORTS THAT SHE WILL BE COMING TO THE ED TO PATHOLOGY SECRETARY/TRANSCRIPTIONIST THE PATIENT. THIS RN CALLS JOSE BACK AND INFORMS HER OF THE ED PHYSICIAN STATEMENTS, AND JANELL COMING TO PATHOLOGY SECRETARY/TRANSCRIPTIONIST THE PATIENT. SISTER REPORTS THAT SHE AND THE PATIENTS SONS ARE WORRIED ABOUT HIS WELL BEING AND LIVING ALONE, AND THAT THEY ARE COMING INTO TOWN TONIGHT AND THROUGHOUT THE WEEK TO SEE HIM.
== END 2023-10-21 14:58 | disposition home or self-care (01) ==
PROVIDERS: Emergency Provider Emergency Medicine; PCP Family Medicine; Visit Provider Emergency Medicine
DX: R44.1 Visual hallucinations (principal); Z87.891 Personal history of nicotine dependence
CPT/HCPCS: 70450; 80048; 80076; 80307; 80320; 81001; 85025; 87426; 99282; A4216; G0480